=== PATIENT | male | born 1955 | race Caucasian/White ===

== ENCOUNTER → 2018-01-24 | Outpatient (CLI) | payer BC ==
[~2018-01-24] MED LIST: CONTRAST GIVEN MC
[2018-01-24 09:51] LABS: CREATININE 1.1 mg/dL (0.7-1.3)
[2018-01-24 09:51] LABS: GFR 67.6
[2018-01-24] MEDS: IOHEXOL 240 MG/ML 50ML VIAL. PO (10:58)
[2018-01-24] MEDS: IOHEXOL 300 MG/ML 100ML VIAL. IV (10:58)
== END | disposition home or self-care (01) ==
LOC: CT 09:00
DX: K86.1 Other chronic pancreatitis (principal); K76.0 Fatty (change of) liver, not elsewhere classified; I70.0 Atherosclerosis of aorta; J98.11 Atelectasis
CPT/HCPCS: 36415; 74160; 82565; Q9966; Q9967

== ENCOUNTER → 2018-07-06 | Outpatient (CLI) | payer BC ==
--- NOTE | 2018-07-06 17:01 | RAD ---
Left breast ultrasound, 07/06/2018: History: Nipple pain The periareolar region was carefully scanned. No mass or abnormal fluid collection is seen. IMPRESSION: No significant abnormality is detected.
== END | disposition home or self-care (01) ==
LOC: US 09:26
PROVIDERS: ATTEND Family Medicine
DX: N64.4 Mastodynia (principal)
CPT/HCPCS: 76641

== ENCOUNTER → 2019-04-14 | Day surgery (SDC) | payer BC ==
[~2019-04-14] MED LIST changes: +ATOR20TA58 PO; -CONTRAST GIVEN MC; +DAPA10TA PO; +LIDOCAINE 1%/EPI 1:100,000 20 ML VIAL. INJ ONE; +LOSA100T14 PO; +METF500T16 PO; +METO-239 PO
[2019-04-14 12:08] VITALS: BP 128/62
--- NOTE | 2019-04-14 12:40 | PDOC ---
BRIEF OPERATIVE NOTE Date: April 14, 2019 Pre-Op Diagnosis recurrent cyst left posterior neck Post-Op Diagnosis same Procedure Performed excision Surgeon Jasmeet Anesthesia Type: Local Blood Loss nil Specimens Obtained skin and subcutaneous tissue 2x1x1 cm Findings cyst Complications none Operative Note Wk # [id number] NIKHIL ANGEL MD April 14, 2019 12:40
--- NOTE | 2019-04-14 12:43 | DISCH ---
DISCHARGE INSTRUCTIONS Condition on Discharge Condition on Discharge: Stable Activity After Discharge Activity Instructions for Disc: Activity as tolerated, Avoid exertion Diet after Discharge Diet after Discharge: Regular Wound Incision Care Wound/Incision Care: Ice to area for comfort Other wound/incision instructi: march Follow-Up Follow up with: Jasmeet in a week NIKHIL ANGEL MD April 14, 2019 12:43
--- NOTE | 2019-04-14 14:51 | OP ---
DATE OF SURGERY: 04/14/2019 PREOPERATIVE DIAGNOSIS: Recurrent cyst, left posterior neck. POSTOPERATIVE DIAGNOSIS: Recurrent cyst, left posterior neck. PROCEDURE: Excision of recurrent cyst, left posterior neck. SPECIMEN: Skin and subcutaneous tissue, 2 x 1 x 1 cm. SURGEON: Nikhil Angel MD ANESTHESIA: Local. DESCRIPTION OF PROCEDURE: The patient was brought to the outpatient area, placed in the prone position and the left posterior neck was prepped and draped in usual sterile fashion. A marking pen was outlined the elliptical incision around the puncta over the palpable cyst. The area was blocked with 1% lidocaine with epinephrine, incised and removed intact. Hemostasis with cautery. Wound closed with interrupted inverted 3-0 Vicryl in the subcutaneous tissue and a subcuticular 4-0 Monocryl and Steri-Strips for the skin. Sterile dressing applied. The patient taken out of the prone position after tolerating procedure well. NIKHIL ANGEL MD DR: ALICE/ward JOB#: [id number] / [id number]
--- NOTE | 2019-04-17 15:06 | PATHOLOGY ---
[facility] Accession Number: [id number] . 01 Material submitted: . neck - CYST POSTERIOR NECK. Modifiers: posterior . 01 Clinical history: . CYST, LEFT POSTERIOR NECK . 02 Diagnosis: Skin, left posterior neck, excisional biopsy: - Epidermal inclusion cyst appears completely excised. 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 02 Electronically signed: . Yohannes Ferreira MD, Pathologist NPI- [id number] . 01 Gross description: . The specimen is received in formalin, labeled " Les, [place], cyst, posterior neck", is an unoriented ellipse of sen-white, hairbearing skin measuring 2.0 x 0.8 cm, excised to a depth of 0.7 cm. The margins are inked black. The specimen is serially sectioned into 5 pieces to show a 0.8 x 0.6 x 0.5 cm cyst filled with brito-white keratinaceous material. [employer] tissue is submitted in A1. ([facility]; 04/14/2019) [facility] . 02 Pathologist provided ICD-10: L72.0 . 02 CPT . 387982 Specimen Comment: A courtesy copy of this report has been sent to Specimen Comment: [phone], . Specimen Comment: Report sent to / DR GONZALEZ Performed at: [facility] [address], [place] [id number] MD Nikolai Boateng MD Phone: [phone] Performed at: [facility] [address], [place] [id number] MD Fer Ellis MD Phone: [phone]
== END ==
LOC: SURG 11:35
PROVIDERS: ATTEND Surgery
DX: L72.0 Epidermal cyst (principal); E11.9 Type 2 diabetes mellitus without complications; E11.40 Type 2 diabetes mellitus with diabetic neuropathy, unspecified; E78.00 Pure hypercholesterolemia, unspecified; I10 Essential (primary) hypertension; K21.9 Gastro-esophageal reflux disease without esophagitis; Z98.890 Other specified postprocedural states; Z98.49 Cataract extraction status, unspecified eye; Z72.89 Other problems related to lifestyle; Z88.8 Allergy status to other drugs, medicaments and biological substances; Z79.84 Long term (current) use of oral hypoglycemic drugs; Z96.1 Presence of intraocular lens
CPT/HCPCS: 11422; 88304; J3490

== ENCOUNTER 2019-08-09 10:46 | Emergency (ER) | payer BC ==
[~2019-08-09] VITALS: Ht 177.8 cm; Wt 96.2 kg
[~2019-08-09 10:46] MED LIST changes: -LIDOCAINE 1%/EPI 1:100,000 20 ML VIAL. INJ ONE
[2019-08-09 11:04] VITALS: BP 171/81
--- NOTE | 2019-08-09 11:35 | RAD ---
PA view chest x-ray and 3 view study of the left ribs Clinical indications: Fall. Left rib pain. FINDINGS: No acute left rib fracture is evident. No acute infiltrate or pleural effusion or pulmonary edema or pneumothorax is evident. The heart size and mediastinum and pulmonary vasculature and both zoey are unremarkable. IMPRESSION: No acute left rib fracture. Electronically signed by: Jake Desir MD (08/09/2019 11:31 AM) [id number]
[2019-08-09] MEDS ORDERED: HYDR-3164 PO (11:53)
[2019-08-09] MEDS ORDERED: CYCL10TA2 PO (11:53)
--- NOTE | 2019-08-09 11:54 | PHYS DOC ---
Adult General Chief Complaint Chief Complaint: RIB PAIN HPI HPI Patient is a 64 year old male who presents to the ED to the ED today complaining of mild pain to the left lateral ribs that began yesterday after she fell down 3-4 steps. Denies any loss of consciousness. Patient states the pain is worse when he takes deep breaths. Denies any neck or head pain. He states he protected his head when he fell from hit the ground. He states he is on a baby aspirin every day. Review of Systems Review of Systems Constitutional: Denies fever or chills [] Eyes: Denies change in visual acuity, redness, or eye pain [] HENT: Denies nasal congestion or sore throat [] Respiratory: Reports rib pain. Denies cough or shortness of breath [] Cardiovascular: Denies chest pain GI: Denies abdominal pain, nausea, vomiting, bloody stools or diarrhea [] : Denies dysuria or hematuria [] Musculoskeletal: Denies back pain or joint pain [] Integument: Denies rash or skin lesions [] Neurologic: Denies headache, focal weakness or sensory changes [] Endocrine: Denies polyuria or polydipsia [] All other systems were reviewed and found to be within normal limits, except as documented in this note. Allergies Allergies Allergies Coded Allergies Type Severity Reaction Last Updated Verified No Known Drug Allergies 04/14/19 No Physical Exam Physical Exam Constitutional: Well developed, well nourished, no acute distress, non-toxic appearance. [] HENT: Normocephalic, atraumatic, bilateral external ears normal, oropharynx moist, no oral exudates, nose normal. [] Eyes: PERRLA, EOMI, conjunctiva normal, no discharge. [] Neck: Normal range of motion, no tenderness, supple, no stridor. [] Cardiovascular:Heart rate regular rhythm, no murmur [] Lungs & Thorax: No bruising noted on the left ribs. Slight tenderness on palpation of the left lateral ribs mid axillary line approximately ribs 5- 7. Bilateral breath sounds clear to auscultation [] Abdomen: Bowel sounds normal, soft, no tenderness, no masses, no pulsatile masses. [] Skin: Warm, dry, no erythema, no rash. [] Back: No tenderness, no CVA tenderness. [] Extremities: No tenderness, no cyanosis, no clubbing, ROM intact, no edema. [] Neurologic: Alert and oriented X 3, normal motor function, normal sensory function, no focal deficits noted. [] Psychologic: Affect normal, judgement normal, mood normal. [] EKG EKG [] Radiology/Procedures Radiology/Procedures []PROCEDURE: RIBS LEFT AND PA CHEST PA view chest x-ray and 3 view study of the left ribs Clinical indications: Fall. Left rib pain. FINDINGS: No acute left rib fracture is evident. No acute infiltrate or pleural effusion or pulmonary edema or pneumothorax is evident. The heart size and mediastinum and pulmonary vasculature and both zoey are unremarkable. IMPRESSION: No acute left rib fracture. Electronically signed by: Marbin Desir MD (08/09/2019 11:31 AM) [id number] DICTATED and SIGNED BY: MARBIN DESIR MD DATE: 08/09/19 1131 Course & Med Decision Making Course & Med Decision Making Pertinent Labs and Imaging studies reviewed. (See chart for details) This is a 64-year-old male patient who presents to the ED today with left rib pain after falling yesterday. Left lateral rib x-rays including PA chest negative for any acute findings. Patient was discharged to home. Provided incentive spirometry in the ED. Ice elevation encouraged. Follow-up with PCP next week. Dragon Disclaimer Dragon Disclaimer This electronic medical record was generated, in whole or in part, using a voice recognition dictation system. Departure Departure Impression: Primary Impression: Contusion of rib on left side Additional Impression: Fall down steps Disposition: 01 HOME, SELF-CARE Condition: STABLE Referrals: ANJALI PLUMMER MD (PCP) Follow up next week Patient Instructions: Contusion Additional Instructions: You were seen for left rib contusion. Try to ice and elevate the affected area. Use the incentive spirometry provided as ordered. Follow-up with your own doctor in the course of next week. Come back to the ED at any point symptoms worsen. Scripts Hydrocodone/Apap 5-325 (NORCO 5-325 TABLET) 1 Each Tablet 1 TAB PO Q6HRS, #20 TAB Prov: MUTUNGA,MALIK [employer] SAL[employer] TRAINER 08/09/19 Cyclobenzaprine Hcl (CYCLOBENZAPRINE HCL) 10 Mg Tablet 1 TAB PO TID, #30 TAB Prov: MUTUNGA,MALIK [employer] SAL[employer] TRAINER 08/09/19 Problem Qualifiers Primary Impression: Contusion of rib on left side Encounter type: initial encounter Qualified Codes: S20.212A - Contusion of left front wall of thorax, initial encounter Additional Impression: Fall down steps Encounter type: initial encounter Qualified Codes: W10.8XXA - Fall (on) (from) other stairs and steps, initial encounter MALIK BHAGAT APRN Aug 09, 2019 11:53
== END 2019-08-09 12:04 | disposition home or self-care (01) ==
LOC: ER 10:46
DX: S20.212A Contusion of left front wall of thorax, initial encounter (principal); W10.8XXA Fall (on) (from) other stairs and steps, initial encounter; Y93.89 Activity, other specified; Y92.89 Other specified places as the place of occurrence of the external cause; Y99.8 Other external cause status
CPT/HCPCS: 71101; 99284-25

== ENCOUNTER → 2021-05-30 | Outpatient (CLI) | payer BC ==
[~2021-05-30] MED LIST changes: +CYCL10TA2 PO; +HYDR-3164 PO
--- NOTE | 2021-05-30 17:23 | KCIC ---
Exam Date: 05/30/2021 1:04 PM XR HIP (WITH OR WITHOUT PELVIS) 1 VIEW Indication: Reason: BILAT HIP PAIN SEVERAL MONTHS, NO INJURY / Spl. Instructions: / History: . FINDINGS/ IMPRESSION: Hip joint spaces are maintained bilaterally. Small osteophytes are seen in the hips bilaterally. Th ere is prominence of the lateral femoral head neck junction in the proximal femora bilaterally which is nonspecific but can be seen with CAM-type femoral acetabular impingement, in the appropriate clini angelika setting. Alignment is maintained. Degenerative changes seen in the lower lumbar spine and SI yury ints and pubic symphysis. Calcifications in the pelvis are consistent with phlebolith. No acute fra cture or dislocation. Electronically signed by: Benny Cortes MD (05/30/2021 5:20 PM) [id number]
== END ==
LOC: KCIC 12:38
PROVIDERS: ATTEND Family Medicine
DX: M25.752 Osteophyte, left hip (principal); M25.751 Osteophyte, right hip
CPT/HCPCS: 73521

== ENCOUNTER → 2021-07-18 | Outpatient (CLI) | payer BC ==
[~2021-07-18] MED LIST changes: +BUPIVACAINE MPF 0.5% 10 ML VIAL. IJ ONE; +IOHEXOL 300 MG/ML 50 ML VIAL. IJ ONE; +LIDOCAINE 1% Multi-Dose 20 ML VIAL. INJ ONE; +TRIAMCINOLONE ACETONIDE 40 MG/ML VIAL. INT ART ONE
--- NOTE | 2021-07-18 16:11 | RAD ---
EXAM: Right hip joint injection WITH Fluoroscopic guidance DATE: 07/18/2021 12:44 PM CLINICAL HISTORY: Reason: RIGHT HIP PAIN / Spl. Instructions: 40MG KENALOG,2ML BUPIVICAINE .0 MIN FT, 1 IMAGE / History: COMPARISON: None pertinent TECHNIQUE: The patient was informed of the indications and alternatives for this procedure as well as risks and benefits. No immediate contraindication identified. The patient provided informed, written consent. Laterality was confirmed by the entire team following a time out. Following initial Right hip joint localization, a suitable area was sterilely prepped and draped. Loc al anesthesia was administered with 1% xylocaine. With intermittent fluoroscopic observation, a 22-ga uge spinal needle was advanced into the Right hip joint sheath/capsule with confirmation of intra-syn ovial position with infusion of less than 1 cc iodinated contrast. Subsequent infusion solution conta ining 40 mg Kenalog, 2 mL bupivacaine 0.25 percent and 3 mL lidocaine 1 percent. Hemostasis with loca l pressure. Local clinical exam negative for immediate complication. Patient informed re local potential signs or symptoms that may indicate need to return to ER/Ordering physician for further evaluation. Patient informed re precautionary measures after intra-synovial in jection of anesthetic. Patient informed re potential for short term increase local symptomatology due to steroid flare. Patient expressed understanding. Performing Physicians: Dr. Lulu Nichols Blood Loss: 0 cc Total Fluoroscopy time: Less than 0.1 minutes Total spot images taken: 0 IMPRESSION: Successful intra-synovial injection Right hip joint with steroid and anesthetic per clinical request. Electronically signed by: Narendra Nichols MD (07/18/2021 4:08 PM) [id number] CUSTOM FIELD 1
== END ==
LOC: RAD 12:47
PROVIDERS: ATTEND Orthopaedic Surgery
DX: M25.551 Pain in right hip (principal); I10 Essential (primary) hypertension; E78.00 Pure hypercholesterolemia, unspecified; I25.10 Atherosclerotic heart disease of native coronary artery without angina pectoris; K21.9 Gastro-esophageal reflux disease without esophagitis; E11.9 Type 2 diabetes mellitus without complications; Z79.899 Other long term (current) drug therapy; Z95.5 Presence of coronary angioplasty implant and graft; Z98.890 Other specified postprocedural states
CPT/HCPCS: 20610; 77002

== ENCOUNTER → 2021-12-25 | Outpatient (CLI) | payer BC ==
[~2021-12-25] MED LIST changes: -BUPIVACAINE MPF 0.5% 10 ML VIAL. IJ ONE; +CYCL10TA19 PO; -CYCL10TA2 PO; -IOHEXOL 300 MG/ML 50 ML VIAL. IJ ONE; -LIDOCAINE 1% Multi-Dose 20 ML VIAL. INJ ONE; -TRIAMCINOLONE ACETONIDE 40 MG/ML VIAL. INT ART ONE
--- NOTE | 2021-12-25 16:04 | KCIC ---
AP and Lateral Views of the Chest 12/25/2021 3:41 PM Indication: Unexplained occassional chest pain and cough since September. Comparison: Chest radiograph August 09, 2019 Findings: There is no focal consolidation or infiltrate identified. The cardiomediastinal silhouette is within normal limits. There is no evidence of pneumothorax or pleural effusion. No acute osseous a bnormalities are identified. Impression: No evidence of acute cardiopulmonary process. Electronically signed by: Valerio Leon MD (12/25/2021 4:02 PM) [id number]
== END ==
LOC: KCIC 15:38
PROVIDERS: ATTEND Family Medicine
DX: R07.9 Chest pain, unspecified (principal)
CPT/HCPCS: 71046